=== PATIENT | male | born 1975 | race African-American/Black ===

== ENCOUNTER 2019-04-04 09:03 | Emergency (ER) | payer OTHER ==
[~2019-04-04] VITALS: Ht 175.3 cm; Wt 77.3 kg
[2019-04-04 09:06] VITALS: BP 135/81
--- NOTE | 2019-04-04 09:11 | NUR ---
PT AMBULATED TO ER BED 05
--- NOTE | 2019-04-04 09:18 | NUR ---
PATIENT PRESENTS TO ED WITH C/O NECK AND LT LEG PAIN FOR APPROX 1 WEEK. PT STATES HE SUFFERS FROM A PINCHED NERVE. AAOX4 WITH EVEN AND STEADY GAIT; PERRLA; CLEAR SPEECH NOTED. PATIENT STATES PAIN OF 8/10 AT THIS TIME; VSS; PATIENT POSITIONED FOR COMFORT; BEDRAILS UP X1; BED DOWN. ER MD TO EVALUATE PT.
[2019-04-04 09:19] VITALS: BP 133/79
--- NOTE | 2019-04-04 09:24 | NUR ---
DR PINEDA EVALUATING PT AT BEDSIDE.
--- NOTE | 2019-04-04 09:30 | NUR ---
DR CORTEZ EVALUATING PT
[2019-04-04] MEDS ORDERED: KETOROLAC 30 MG/ML VIAL IM ONE (09:45)
== END 2019-04-04 09:59 | disposition home or self-care (01) ==
LOC: MED 09:03
DX: M54.2 Cervicalgia (principal); M62.838 Other muscle spasm
CPT/HCPCS: 96372; 99283; J1885